=== PATIENT | female | born 1945 | race Caucasian/White ===

== ENCOUNTER 2016-11-15 10:59 | Day surgery (SDC) | payer MEDICARE, OTHER, BC ==
--- NOTE | ~2016-11-15 | EGD ---
EGD REPORT [facility] [address] [place]. [address] NAME: KATHY MARTIN : [birth year] STATUS : REG [facility]#: [id number] AGE: 70 ADM/REG DATE : 11/15/16 MR#: [id number] REPORT SERV DATE: 11/15/16 DICTATED BY: MILLY NUNEZ DATE: 11/15/16 REPORT STATUS : Draft TRANSCRIBED BY: [facility] DATE: 11/15/16 Endoscopy Center Patient Name: Kathy Martin Date of : 1945 Attending MD: MILLY NUNEZ MD Procedure Date No Time: 11/15/2016 Procedure: Upper GI endoscopy Indications: Dyspepsia Referring MD: Eneida Figueroa Medicines: Propofol per Anesthesia Complications: No immediate complications. Procedure: Pre-Anesthesia Assessment: - ASA Grade Assessment: III - A patient with severe systemic disease. After obtaining informed consent, the endoscope was passed under direct vision. Throughout the procedure, the patient's blood pressure, pulse, and oxygen saturations were monitored continuously. The GIF H190 [id number] was introduced through the mouth, and advanced to the second part of duodenum. The upper GI endoscopy was accomplished without difficulty. The patient tolerated the procedure well. Findings: The examined esophagus was normal. Diffuse mild inflammation characterized by congestion (edema) and erythema was found in the gastric antrum. Biopsies were taken with a cold forceps for histology. The examined duodenum was normal. Biopsies were taken with a cold forceps for histology. Impression: - Normal esophagus. - Gastritis. Biopsied. - Normal examined duodenum. Biopsied. Recommendation: - Await pathology results. Procedure Code(s): --- Professional --- 47803, Esophagogastroduodenoscopy, flexible, transoral; with biopsy, single or multiple Diagnosis Code(s): --- Professional --- K29.70, Gastritis, unspecified, without bleeding K30, Functional dyspepsia EGD REPORT [address] [address] NAME: KATHY MARTIN : [birth year] STATUS : REG [facility] [place] PAT#: [id number] AGE: 70 ADM/REG DATE : 11/15/16 MR#: [id number] REPORT SERV DATE: 11/15/16 DICTATED BY: MILLY NUNEZ. DATE: 11/15/16 REPORT STATUS : Draft TRANSCRIBED BY: [employer] DATE: 11/15/16 CPT copyright 2013 [employer]. All rights reserved. The codes documented in this report are preliminary and upon sleep lab technician review may be revised to meet current compliance requirements. MILLY NUNEZ MD 11/15/2016 12:38 PM This report has been signed electronically. Number of Addenda: 0 Note Initiated On: 11/15/2016 12:08 PM Scope Withdrawal Time 0 hours 0 minutes 0 seconds
--- NOTE | ~2016-11-15 | EGD ---
EGD REPORT [facility] [address] [place]. [address] NAME: KATHY MARTIN : [birth year] STATUS : REG [facility]#: [id number] AGE: 70 ADM/REG DATE : 11/15/16 MR#: [id number] REPORT SERV DATE: 11/15/16 DICTATED BY: MILLY NUNEZ DATE: 11/15/16 REPORT STATUS : Draft TRANSCRIBED BY: [facility] DATE: 11/15/16 Endoscopy Center Patient Name: Kathy Martin Date of : 1945 Attending MD: MILLY NUNEZ MD Procedure Date No Time: 11/15/2016 Procedure: Colonoscopy Indications: Chronic diarrhea Referring MD: Eneida Figueroa Medicines: Propofol per Anesthesia Complications: No immediate complications. Procedure: Pre-Anesthesia Assessment: - ASA Grade Assessment: III - A patient with severe systemic disease. After I obtained informed consent, the scope was passed under direct vision. Throughout the procedure, the patient's blood pressure, pulse, and oxygen saturations were monitored continuously. The PCF [id number] was introduced through the anus and advanced to the terminal ileum, with identification of the appendiceal orifice and IC valve. The colonoscopy was performed without difficulty. The patient tolerated the procedure well. The quality of the bowel preparation was fair. Findings: The perianal and digital rectal examinations were normal. The colon (entire examined portion) appeared normal. Biopsies were taken with a cold forceps from the entire colon for evaluation of microscopic colitis. The terminal ileum appeared normal. Impression: - The entire examined colon is normal. Biopsied. - The examined portion of the ileum was normal. Recommendation: - Await pathology results. - Begin Imodium 1/day. - Patient has a contact number available for emergencies. The signs and symptoms of potential delayed complications were discussed with the patient. Return to normal activities tomorrow. Written discharge instructions were provided to the patient. - Regular diet. - Continue present medications. - Repeat colonoscopy for surveillance based on pathology results. EGD REPORT [facility] [address] [place] [address] NAME: KATHY MARTIN : [birth year] STATUS : REG [facility]#: [id number] AGE: 70 ADM/REG DATE : 11/15/16 MR#: [id number] REPORT SERV DATE: 11/15/16 DICTATED BY: MILLY NUNEZ. DATE: 11/15/16 REPORT STATUS : Draft TRANSCRIBED BY: [employer] DATE: 11/15/16 Procedure Code(s): --- Professional --- 27602, Colonoscopy, flexible, proximal to splenic flexure; with biopsy, single or multiple Diagnosis Code(s): --- Professional --- K52.9, Noninfective gastroenteritis and colitis, unspecified CPT copyright 2013 [employer]. All rights reserved. The codes documented in this report are preliminary and upon counter person review may be revised to meet current compliance requirements. MILLY NUNEZ MD 11/15/2016 12:40 PM This report has been signed electronically. Number of Addenda: 0 Note Initiated On: 11/15/2016 12:09 PM Scope Withdrawal Time 0 hours 7 minutes 53 seconds [id number] [place] [id number]
[~2016-11-15 10:59] MED LIST: *UNABLE1; ABILIFY10 PO; ARICEPT10 PO; ASAB PO; BACDS PO; BENTYL PO; BENTYL10 PO; BUSPAR PO; BUSPAR10 PO; BUTRANS; BUTRANS TD; CELEXA PO; CELEXA20 PO; COR20 PO; COR40 PO; COZAAR100 MG PO; GLUCOPHAGE1000 MG PO; HCTZ12.5 PO; HYOMAX-SL0.125 MG PO; L20 PO; LAMICTAL PO; LAMICTAL150 MG PO; LANTUS SC; LEVOTHYROXIN100 MCG PO; LIPITOR10 PO; LOSARTAN PO; METHOC750B PO; NADOLOL PO; NAMENDA10 MG PO; NEUR100 PO; NEUR300 PO; NEURONTIN PO; NEXIUM40 PO; NOVOLOG SC; OX10 PO; OXYCOD PO; PR25 PO; PRILO PO; PRISTIQ100 MG PO; REM15 PO; ROBAXIN PO; SYN.05 PO; SYNTHROID PO; TRAZODONE PO; TRAZODONE150 MG PO; TRAZODONE300 MG PO; VIIBRYD10 MG PO; VITAMIN B-12 OTC PO; VITAMIN D1000 UNI1 PO; X5 PO; ZOL50 PO; [UNRECOGNIZED DRUG - CODE] PO; [UNRECOGNIZED DRUG - OTHER] PO
== END 2016-11-15 23:59 | disposition home or self-care (01) ==
LOC: DMU 10:59
PROVIDERS: Internal Medicine Gastroenterology
PROC: 0DB68ZX Excision of Stomach, Via Natural or Artificial Opening Endoscopic, Diagnostic (ICD-10-PCS; 2016-11-15)
PROC: 0DBE8ZX Excision of Large Intestine, Via Natural or Artificial Opening Endoscopic, Diagnostic (ICD-10-PCS; principal; 2016-11-15 13:00)
PROC: 0DB98ZX Excision of Duodenum, Via Natural or Artificial Opening Endoscopic, Diagnostic (ICD-10-PCS; 2016-11-15 13:00)
DX: K52.9 Noninfective gastroenteritis and colitis, unspecified (principal); K29.50 Unspecified chronic gastritis without bleeding; I10 Essential (primary) hypertension; G47.33 Obstructive sleep apnea (adult) (pediatric); M79.7 Fibromyalgia; K21.9 Gastro-esophageal reflux disease without esophagitis; G30.9 Alzheimer's disease, unspecified; F02.80 Dementia in other diseases classified elsewhere, unspecified severity, without behavioral disturbance, psychotic disturbance, mood disturbance, and anxiety; Z88.2 Allergy status to sulfonamides; Z98.41 Cataract extraction status, right eye; Z98.42 Cataract extraction status, left eye; Z90.710 Acquired absence of both cervix and uterus; Z90.13 Acquired absence of bilateral breasts and nipples; Z98.890 Other specified postprocedural states
CPT/HCPCS: 82962; 88305; 88342; A9270-GY